=== PATIENT | female | born 1935 | race Caucasian/White ===

== ENCOUNTER 2020-12-22 05:28 | Inpatient (IN) ==
[2020-12-22] MEDS ORDERED: Melatonin 3 MG TABLET PO PRN (10:20)
[2020-12-22] MEDS ORDERED: Ondansetron 4 MG/2 ML VIAL IVP PRN (10:20)
[2020-12-22] MEDS ORDERED: Naloxone 0.4 MG/ML INJ IVP PRN ×2 (10:20→10:48)
[2020-12-22] MEDS ORDERED: Acetaminophen 325 MG TABLET PO PRN (10:48)
[2020-12-22] MEDS ORDERED: *HR* HYDROcodone/Acet 5/325 mg TABLET PO PRN (10:48)
[2020-12-22] MEDS: 0.9 % Sodium Chloride 1,000 ML IVC SCH (11:53)
[2020-12-22 12:26] LABS: Basophils % 0.2 %; Hematocrit 33.1 % (35.3-44.9); Immature Granulocytes % 0.6 % (0-4); Lymphocytes # 0.6 K/mcL (0.6-4.6); Lymphocytes % 7.6 %; Mean Corpuscular HGB Conc 30.2 g/dL (31.6-35.5); Mean Corpuscular Hemoglobin 26.1 pg (28.0-33.3); Mean Corpuscular Volume 86.4 fL (83.0-100.0); Mean Platelet Volume 10.9 fL (9.4-12.4); Monocytes # 0.5 K/mcL (0.0-1.3); Monocytes % 5.4 %; Neutrophils # 7.2 K/mcL (1.6-8.9); Platelet Count 196 K/mcL (140-400); Red Blood Count 3.83 M/mcL (3.82-4.97); Red Cell Distribution Width 14.3 % (11.5-14.5); Segmented Neutrophils % 86.2 %; White Blood Count 8.4 K/mcL (4.3-11.1)
[2020-12-22 12:34] LABS: INR 1.1; Prothrombin Time 12.2 Seconds (9.4-12.1)
[2020-12-22 12:36] LABS: Activated Partial Thrombo Time 26.2 Seconds (26.0-36.0)
[2020-12-22 12:46] LABS: Albumin 3.8 g/dL (3.5-5.7); Albumin/Globulin Ratio 1.6 (1.1-2.2); Bilirubin,Total 0.4 mg/dL (0.3-1.0); Calcium 9.3 mg/dL (8.6-10.3); Globulin 2.4 g/dL (2.4-3.5); Potassium 4.3 mEq/L (3.5-5.1); Total Protein 6.2 g/dL (6.4-8.9)
[2020-12-22] MEDS ORDERED: Dextrose Gel 15 GM/37.5 ML TUBE PO PRN ×2 (15:53)
[2020-12-22] MEDS ORDERED: D5% in Water 1,000 ML IVC PRN (15:53)
[2020-12-22] MEDS ORDERED: *HR* Dextrose 50 % in Water (Vial) 50 ML VIAL IVP PRN (15:53)
[2020-12-22] MEDS: Insulin LISPRO 300 UNITS/3 ML VIAL SUBQ SCH (17:40)
[2020-12-22 17:48] LABS: Estimated Average Glucose 120 mg/dl; Hemoglobin A1C 5.8 %
[2020-12-22] MEDS: *HR* Heparin 5,000 UNIT/ML VIAL SQ SCH (18:40)
[2020-12-22 20:49] LABS: Folate 10.4 ng/mL (3.0-16.0)
[2020-12-22] MEDS ORDERED: Insulin LISPRO 300 UNITS/3 ML VIAL SUBQ SCH (21:00)
[2020-12-23 01:16] LABS: Basophils % 0.4 %; Eosinophils # 0.1 K/mcL (0.0-0.6); Eosinophils % 0.9 %; Hematocrit 30.7 % (35.3-44.9); Hemoglobin 9.2 g/dL (11.5-15.4); Immature Granulocytes % 0.4 % (0-4); Lymphocytes # 0.9 K/mcL (0.6-4.6); Lymphocytes % 12.9 %; Mean Corpuscular Hemoglobin 26.1 pg (28.0-33.3); Mean Corpuscular Volume 87.2 fL (83.0-100.0); Mean Platelet Volume 11.3 fL (9.4-12.4); Monocytes # 0.5 K/mcL (0.0-1.3); Monocytes % 6.9 %; Neutrophils # 5.4 K/mcL (1.6-8.9); Platelet Count 191 K/mcL (140-400); Red Blood Count 3.52 M/mcL (3.82-4.97); Red Cell Distribution Width 14.3 % (11.5-14.5); Segmented Neutrophils % 78.5 %; White Blood Count 6.8 K/mcL (4.3-11.1)
[2020-12-23 01:32] LABS: Calcium 9.1 mg/dL (8.6-10.3); Potassium 4.4 mEq/L (3.5-5.1)
[2020-12-23] MEDS: *HR* Heparin 5,000 UNIT/ML VIAL SQ SCH ×2 (05:42→18:17)
[2020-12-23] MEDS ORDERED: Ringers Solution, Lactated 1,000 ML IVC ONE (07:45)
[2020-12-23 08:24] LABS: Bacteria,Urine Few per hpf (None-Few); Bilirubin,Urine Negative (Negative); Blood,Urine Large (Negative); Clarity,Urine Turbid (Clear); Color,Urine Light-Yellow (Yellow); Glucose,Urine (UA) Normal (Normal); Ketones,Urine Negative (Negative); Leukocyte Esterase,Urine Large (Negative); Mucus,Urine Few per lpf (None-Few); Nitrite,Urine Negative (Negative); PH,Urine 5.5 pH Units (5.0-8.0); Protein,Urine 30 mg/dL (Neg-Trace); RBC,Urine 30-50 per hpf (0-3); Specific Gravity,Urine 1.012 (1.010-1.025); Squamous Epithelial Cell,Urine Few per hpf (None-Few); Urobilinogen,Urine Normal (Normal); WBC,Urine 50-100 per hpf (0-3)
[2020-12-23] MEDS: Insulin LISPRO 300 UNITS/3 ML VIAL SUBQ SCH ×4 (08:49→20:20)
[2020-12-23] MEDS ORDERED: amLODIPine 5 MG TABLET PO SCH (09:00)
[2020-12-23] MEDS ORDERED: *HR* OxyCODONE Immed Rel 5 MG TABLET PO PRN (11:49)
[2020-12-23] MEDS ORDERED: cefTRIAXone 1,000 MG in Water for inj. (sterile) 10 ML IVP SCH (12:00)
[2020-12-23] MEDS: 0.9 % Sodium Chloride 1,000 ML IVC SCH (12:45)
[2020-12-23] MEDS: hydrALAZINE 25 MG TABLET PO SCH ×2 (12:46→18:17)
[2020-12-23] MEDS ORDERED: Vancomycin 1,000 MG VIAL ONE (13:48)
[2020-12-23] MEDS ORDERED: *HR* Vasopressin 20 UNIT/ML VIAL ONE (13:57)
[2020-12-23] MEDS ORDERED: *HR* Phenylephrine 10 MG/ML VIAL ONE (13:58)
[2020-12-23] MEDS ORDERED: TOTAL JOINT MIXTURE (100ML) INTRAART ONE (14:00)
[2020-12-23] MEDS ORDERED: Povidone-Iodine 45 ML, Sodium Chloride IRRigation 1,000 ML IR ONE ×2 (14:00→18:29)
[2020-12-23 14:19] LABS: Calcium 9.4 mg/dL (8.6-10.3); Potassium 4.7 mEq/L (3.5-5.1)
[2020-12-23] MEDS ORDERED: Ondansetron 4 MG/2 ML VIAL IVP PRN ×2 (14:31→18:29)
[2020-12-23] MEDS ORDERED: *HR* FentaNYL (PF) 100 MCG/2 ML VIAL ONE (14:50)
[2020-12-23] MEDS ORDERED: *HR* Midazolam HCl 2 MG/2 ML VIAL ONE (14:50)
[2020-12-23] MEDS ORDERED: Clindamycin 900 MG/50 ML 900 MG/50 ML IV.SOLN IVPB SCH (15:00)
[2020-12-23] MEDS ORDERED: ROPIVACAINE/PF/NS 0.25% 1 EACH SYRINGE INTRAART ONE (15:09)
[2020-12-23] MEDS ORDERED: Tranexamic Acid 1,000 MG/10 ML VIAL ONE (15:33)
[2020-12-23] MEDS ORDERED: *HR* PHENYLEPHRINE 1,000 MCG/10 ML SYRINGE IVP ONE (15:33)
[2020-12-23] MEDS ORDERED: Sennosides 8.6 MG TABLET PO PRN (18:29)
[2020-12-23] MEDS ORDERED: *HR* Dextrose 50 % in Water (Vial) 50 ML VIAL IVP PRN (18:29)
[2020-12-23] MEDS ORDERED: MOM Conc 10 ML UD.LIQ PO PRN (18:29)
[2020-12-23] MEDS ORDERED: D5% in Water 1,000 ML IVC PRN (18:29)
[2020-12-23] MEDS ORDERED: Dextrose Gel 15 GM/37.5 ML TUBE PO PRN ×2 (18:29)
[2020-12-23] MEDS ORDERED: Naloxone 0.4 MG/ML INJ IVP PRN (18:29)
[2020-12-23] MEDS ORDERED: *HR* Promethazine 25 MG/ML VIAL IM PRN (18:29)
[2020-12-23] MEDS ORDERED: Ropivacaine/PF 0.5% 49.24 ML, EPINEPHrine 0.5 MG, cloNIDine 0.08 MG, Ketorolac 30 MG, 0... INTRAART ONE (18:29)
[2020-12-24] LABS: Sodium, Urine 43.5 mEq/L
[2020-12-24] MEDS ORDERED: hydrALAZINE 25 MG TABLET PO SCH
[2020-12-24] MEDS: Clindamycin 900 MG/50 ML 900 MG/50 ML IV.SOLN IVPB SCH ×2 (01:53→10:12)
[2020-12-24 02:15] LABS: Hematocrit 28.1 % (35.3-44.9); Hemoglobin 8.5 g/dL (11.5-15.4); Mean Corpuscular HGB Conc 30.2 g/dL (31.6-35.5); Mean Corpuscular Hemoglobin 26.3 pg (28.0-33.3); Mean Platelet Volume 11.2 fL (9.4-12.4); Platelet Count 175 K/mcL (140-400); Red Blood Count 3.23 M/mcL (3.82-4.97); Red Cell Distribution Width 14.5 % (11.5-14.5); White Blood Count 7.9 K/mcL (4.3-11.1)
[2020-12-24 02:30] LABS: Calcium 8.7 mg/dL (8.6-10.3); Potassium 5.1 mEq/L (3.5-5.1)
[2020-12-24] MEDS: *HR* OxyCODONE Immed Rel 5 MG TABLET PO PRN ×2 (03:34→08:23)
[2020-12-24] MEDS: *HR* Heparin 5,000 UNIT/ML VIAL SQ SCH ×2 (05:44→16:54)
[2020-12-24] MEDS ORDERED: Ringers Solution, Lactated 1,000 ML IVC ONE (07:31)
[2020-12-24] MEDS: Ascorbic Acid 500 MG TABLET PO SCH ×2 (08:16→16:48)
[2020-12-24] MEDS: Multivit/Ca/Min/Fe/FA 1 TAB TABLET PO SCH (08:16)
[2020-12-24] MEDS: amLODIPine 5 MG TABLET PO SCH (08:16)
[2020-12-24] MEDS: cefTRIAXone 1,000 MG in Water for inj. (sterile) 10 ML IVP SCH (08:17)
[2020-12-24] MEDS ORDERED: amLODIPine 5 MG TABLET PO SCH (09:00)
[2020-12-24] MEDS: Insulin LISPRO 300 UNITS/3 ML VIAL SUBQ SCH ×4 (09:43→20:14)
[2020-12-24] MEDS: Sodium Bicarbonate 75 MEQ in 0.45 % Sodium Chloride 1,000 ML IVC SCH (11:53)
[2020-12-25] MEDS: Sodium Bicarbonate 75 MEQ in 0.45 % Sodium Chloride 1,000 ML IVC SCH ×2 (00:41→12:43)
[2020-12-25] MEDS: *HR* Heparin 5,000 UNIT/ML VIAL SQ SCH ×2 (05:50→16:45)
[2020-12-25] MEDS: Insulin LISPRO 300 UNITS/3 ML VIAL SUBQ SCH ×4 (08:24→22:25)
[2020-12-25] MEDS: amLODIPine 5 MG TABLET PO SCH (08:27)
[2020-12-25] MEDS: Multivit/Ca/Min/Fe/FA 1 TAB TABLET PO SCH (08:27)
[2020-12-25] MEDS: cefTRIAXone 1,000 MG in Water for inj. (sterile) 10 ML IVP SCH (08:27)
[2020-12-25] MEDS: Ascorbic Acid 500 MG TABLET PO SCH ×2 (08:27→16:45)
[2020-12-25 08:35] LABS: Hematocrit 26.4 % (35.3-44.9); Mean Corpuscular HGB Conc 30.3 g/dL (31.6-35.5); Mean Corpuscular Hemoglobin 25.6 pg (28.0-33.3); Mean Corpuscular Volume 84.6 fL (83.0-100.0); Mean Platelet Volume 11.1 fL (9.4-12.4); Platelet Count 183 K/mcL (140-400); Red Blood Count 3.12 M/mcL (3.82-4.97); Red Cell Distribution Width 14.8 % (11.5-14.5); White Blood Count 9.5 K/mcL (4.3-11.1)
[2020-12-25 11:01] LABS: Calcium 9.1 mg/dL (8.6-10.3); Potassium 3.6 mEq/L (3.5-5.1)
[2020-12-25] MEDS: *HR* OxyCODONE Immed Rel 5 MG TABLET PO PRN (16:46)
[2020-12-26 02:07] LABS: Calcium 8.8 mg/dL (8.6-10.3); Potassium 3.5 mEq/L (3.5-5.1)
[2020-12-26] MEDS: *HR* OxyCODONE Immed Rel 5 MG TABLET PO PRN ×2 (06:21→10:22)
[2020-12-26] MEDS: *HR* Heparin 5,000 UNIT/ML VIAL SQ SCH ×2 (06:21→17:13)
[2020-12-26] MEDS: Insulin LISPRO 300 UNITS/3 ML VIAL SUBQ SCH ×4 (08:45→20:27)
[2020-12-26] MEDS: Aspirin Enteric Coated 81 MG Tablet PO SCH (09:24)
[2020-12-26] MEDS: amLODIPine 5 MG TABLET PO SCH (09:24)
[2020-12-26] MEDS: Ascorbic Acid 500 MG TABLET PO SCH ×2 (09:24→17:12)
[2020-12-26] MEDS: Multivit/Ca/Min/Fe/FA 1 TAB TABLET PO SCH (09:24)
[2020-12-26] MEDS: cefTRIAXone 1,000 MG in Water for inj. (sterile) 10 ML IVP SCH (10:23)
[2020-12-26] MEDS ORDERED: 0.9 % Sodium Chloride 1,000 ML IVC SCH (11:45)
[2020-12-27 03:10] LABS: Hematocrit 20.9 % (35.3-44.9); Hemoglobin 6.4 g/dL (11.5-15.4); Mean Corpuscular HGB Conc 30.6 g/dL (31.6-35.5); Mean Corpuscular Hemoglobin 26.2 pg (28.0-33.3); Mean Corpuscular Volume 85.7 fL (83.0-100.0); Mean Platelet Volume 11.9 fL (9.4-12.4); Platelet Count 186 K/mcL (140-400); Red Blood Count 2.44 M/mcL (3.82-4.97); White Blood Count 6.8 K/mcL (4.3-11.1)
[2020-12-27 03:25] LABS: Calcium 8.5 mg/dL (8.6-10.3); Potassium 3.6 mEq/L (3.5-5.1)
[2020-12-27] MEDS: *HR* Heparin 5,000 UNIT/ML VIAL SQ SCH ×2 (06:00→17:49)
[2020-12-27] MEDS: Insulin LISPRO 300 UNITS/3 ML VIAL SUBQ SCH ×4 (08:57→20:43)
[2020-12-27] MEDS: Ascorbic Acid 500 MG TABLET PO SCH ×2 (08:58→17:49)
[2020-12-27] MEDS: Multivit/Ca/Min/Fe/FA 1 TAB TABLET PO SCH (08:59)
[2020-12-27] MEDS: amLODIPine 5 MG TABLET PO SCH (08:59)
[2020-12-27] MEDS: Aspirin Enteric Coated 81 MG Tablet PO SCH (08:59)
[2020-12-27] MEDS ORDERED: 0.9 % Sodium Chloride 250 ML ONE (11:35)
[2020-12-27] MEDS: cefTRIAXone 1,000 MG in Water for inj. (sterile) 10 ML IVP SCH (12:15)
[2020-12-27] MEDS: *HR* OxyCODONE Immed Rel 5 MG TABLET PO PRN (14:24)
[2020-12-27 16:11] LABS: Hematocrit 28.2 % (35.3-44.9)
[2020-12-27 16:18] LABS: Hemoglobin 8.7 g/dL (11.5-15.4)
[2020-12-28] MEDS: *HR* OxyCODONE Immed Rel 5 MG TABLET PO PRN ×2 (01:15→19:17)
[2020-12-28 02:55] LABS: Hematocrit 24.6 % (35.3-44.9); Hemoglobin 7.8 g/dL (11.5-15.4); Mean Corpuscular HGB Conc 31.7 g/dL (31.6-35.5); Mean Corpuscular Hemoglobin 27.1 pg (28.0-33.3); Mean Corpuscular Volume 85.4 fL (83.0-100.0); Platelet Count 196 K/mcL (140-400); Red Blood Count 2.88 M/mcL (3.82-4.97); Red Cell Distribution Width 14.8 % (11.5-14.5)
[2020-12-28 03:12] LABS: Calcium 8.9 mg/dL (8.6-10.3); Potassium 3.7 mEq/L (3.5-5.1)
[2020-12-28 03:34] LABS: Folate 10.3 ng/mL (3.0-16.0)
[2020-12-28] MEDS: *HR* Heparin 5,000 UNIT/ML VIAL SQ SCH ×2 (06:31→17:25)
[2020-12-28] MEDS: Ascorbic Acid 500 MG TABLET PO SCH ×2 (09:15→17:25)
[2020-12-28] MEDS: cefTRIAXone 1,000 MG in Water for inj. (sterile) 10 ML IVP SCH (09:15)
[2020-12-28] MEDS: Multivit/Ca/Min/Fe/FA 1 TAB TABLET PO SCH (09:15)
[2020-12-28] MEDS: amLODIPine 5 MG TABLET PO SCH (09:15)
[2020-12-28] MEDS: Cyanocobalamin (B-12) 1,000 MCG/ML VIAL SQ SCH (09:15)
[2020-12-28] MEDS: Aspirin Enteric Coated 81 MG Tablet PO SCH (09:15)
[2020-12-28] MEDS: Insulin LISPRO 300 UNITS/3 ML VIAL SUBQ SCH ×4 (09:17→20:30)
[2020-12-28 12:37] LABS: Hematocrit 29.4 % (35.3-44.9); Hemoglobin 9.2 g/dL (11.5-15.4)
[2020-12-28] MEDS: Melatonin 3 MG TABLET PO PRN (21:04)
[2020-12-29 00:35] LABS: Basophils % 0.4 %; Eosinophils # 0.1 K/mcL (0.0-0.6); Eosinophils % 1.9 %; Hematocrit 27.7 % (35.3-44.9); Hemoglobin 8.5 g/dL (11.5-15.4); Immature Granulocytes % 1.2 % (0-4); Lymphocytes # 1.5 K/mcL (0.6-4.6); Mean Corpuscular HGB Conc 30.7 g/dL (31.6-35.5); Mean Corpuscular Hemoglobin 26.9 pg (28.0-33.3); Mean Corpuscular Volume 87.7 fL (83.0-100.0); Mean Platelet Volume 10.8 fL (9.4-12.4); Monocytes # 0.9 K/mcL (0.0-1.3); Monocytes % 13.2 %; Neutrophils # 4.3 K/mcL (1.6-8.9); Platelet Count 240 K/mcL (140-400); Red Blood Count 3.16 M/mcL (3.82-4.97); Red Cell Distribution Width 14.7 % (11.5-14.5); Segmented Neutrophils % 62.3 %; White Blood Count 6.9 K/mcL (4.3-11.1)
[2020-12-29 00:50] LABS: Potassium 4.2 mEq/L (3.5-5.1)
[2020-12-29] MEDS ORDERED: *HR* HYDROcodone/Acet 5/325 mg TABLET PO PRN (02:50)
[2020-12-29] MEDS ORDERED: Morphine Sulfate 2 MG/ML SYRINGE IVP ONE (02:52)
[2020-12-29 04:58] LABS: Bilirubin,Urine Negative (Negative); Blood,Urine Negative (Negative); Clarity,Urine Clear (Clear); Color,Urine Colorless (Yellow); Glucose,Urine (UA) Normal (Normal); Ketones,Urine Negative (Negative); Leukocyte Esterase,Urine Negative (Negative); Nitrite,Urine Negative (Negative); Protein,Urine Negative (Neg-Trace); Specific Gravity,Urine 1.006 (1.010-1.025); Urobilinogen,Urine Normal (Normal)
[2020-12-29] MEDS: *HR* Heparin 5,000 UNIT/ML VIAL SQ SCH ×2 (06:14→17:33)
[2020-12-29] MEDS: Cyanocobalamin (B-12) 1,000 MCG/ML VIAL SQ SCH (08:47)
[2020-12-29] MEDS: cefTRIAXone 1,000 MG in Water for inj. (sterile) 10 ML IVP SCH (08:47)
[2020-12-29] MEDS: Insulin LISPRO 300 UNITS/3 ML VIAL SUBQ SCH ×4 (08:48→21:30)
[2020-12-29] MEDS: amLODIPine 5 MG TABLET PO SCH ×2 (08:48→15:24)
[2020-12-29] MEDS: Ascorbic Acid 500 MG TABLET PO SCH ×2 (08:48→15:24)
[2020-12-29] MEDS: Aspirin Enteric Coated 81 MG Tablet PO SCH (08:48)
[2020-12-29] MEDS: Multivit/Ca/Min/Fe/FA 1 TAB TABLET PO SCH (08:48)
[2020-12-29] MEDS: Melatonin 3 MG TABLET PO PRN (21:04)
[2020-12-30] MEDS: *HR* OxyCODONE Immed Rel 5 MG TABLET PO PRN (01:54)
[2020-12-30 04:38] LABS: Hematocrit 30.7 % (35.3-44.9); Hemoglobin 9.3 g/dL (11.5-15.4); Mean Corpuscular HGB Conc 30.3 g/dL (31.6-35.5); Mean Corpuscular Hemoglobin 26.6 pg (28.0-33.3); Platelet Count 272 K/mcL (140-400); Red Blood Count 3.49 M/mcL (3.82-4.97); White Blood Count 6.7 K/mcL (4.3-11.1)
[2020-12-30 04:54] LABS: Potassium 4.4 mEq/L (3.5-5.1)
[2020-12-30] MEDS: *HR* Heparin 5,000 UNIT/ML VIAL SQ SCH ×2 (05:52→16:28)
[2020-12-30] MEDS: Insulin LISPRO 300 UNITS/3 ML VIAL SUBQ SCH ×4 (07:37→19:55)
[2020-12-30] MEDS: Cyanocobalamin (B-12) 1,000 MCG/ML VIAL SQ SCH (07:42)
[2020-12-30] MEDS: Multivit/Ca/Min/Fe/FA 1 TAB TABLET PO SCH (07:43)
[2020-12-30] MEDS: Aspirin Enteric Coated 81 MG Tablet PO SCH (07:43)
[2020-12-30] MEDS: amLODIPine 5 MG TABLET PO SCH (07:43)
[2020-12-30] MEDS: Ascorbic Acid 500 MG TABLET PO SCH ×2 (07:44→16:28)
[2020-12-30] MEDS: cefTRIAXone 1,000 MG in Water for inj. (sterile) 10 ML IVP SCH (07:44)
[2020-12-30] MEDS: 0.9 % Sodium Chloride 1,000 ML IVC SCH ×2 (11:26→19:54)
[2020-12-30] MEDS: Melatonin 3 MG TABLET PO PRN (23:48)
[2020-12-31] MEDS: *HR* Heparin 5,000 UNIT/ML VIAL SQ SCH ×2 (06:18→18:14)
[2020-12-31] MEDS: Aspirin Enteric Coated 81 MG Tablet PO SCH (08:21)
[2020-12-31] MEDS: amLODIPine 5 MG TABLET PO SCH (08:21)
[2020-12-31] MEDS: Multivit/Ca/Min/Fe/FA 1 TAB TABLET PO SCH (08:21)
[2020-12-31] MEDS: Ascorbic Acid 500 MG TABLET PO SCH ×2 (08:21→18:14)
[2020-12-31] MEDS: Cyanocobalamin (B-12) 1,000 MCG/ML VIAL SQ SCH (08:23)
[2020-12-31] MEDS: Insulin LISPRO 300 UNITS/3 ML VIAL SUBQ SCH ×4 (08:26→21:13)
[2020-12-31 21:15] LABS: Lambda Qnt Free Light Chains 39.95 mg/L (5.71-26.30)
[2021-01-01] MEDS: *HR* Heparin 5,000 UNIT/ML VIAL SQ SCH ×2 (06:15→17:17)
[2021-01-01] MEDS: Aspirin Enteric Coated 81 MG Tablet PO SCH (07:53)
[2021-01-01] MEDS: Ascorbic Acid 500 MG TABLET PO SCH ×2 (07:54→17:17)
[2021-01-01] MEDS: Multivit/Ca/Min/Fe/FA 1 TAB TABLET PO SCH (07:54)
[2021-01-01] MEDS: amLODIPine 5 MG TABLET PO SCH (07:56)
[2021-01-01] MEDS: Insulin LISPRO 300 UNITS/3 ML VIAL SUBQ SCH ×4 (07:59→20:23)
[2021-01-01 10:56] LABS: Kappa Qnt Free Light Chains 43.91 mg/L (3.30-19.40)
[2021-01-01] MEDS: Melatonin 3 MG TABLET PO PRN (22:26)
[2021-01-02 00:57] LABS: Alpha 2 Globulin (PEP) 0.78 g/dL (0.48-1.05); Beta Globulin (PEP) 0.62 g/dL (0.48-1.10)
[2021-01-02] MEDS: *HR* Heparin 5,000 UNIT/ML VIAL SQ SCH (06:24)
[2021-01-02] MEDS: Insulin LISPRO 300 UNITS/3 ML VIAL SUBQ SCH (10:08)
[2021-01-02 10:14] VITALS: BP 156/76
[2021-01-02] MEDS: amLODIPine 5 MG TABLET PO SCH (10:22)
[2021-01-02] MEDS: Ascorbic Acid 500 MG TABLET PO SCH (10:24)
[2021-01-02] MEDS: Multivit/Ca/Min/Fe/FA 1 TAB TABLET PO SCH (10:24)
[2021-01-02] MEDS: Aspirin Enteric Coated 81 MG Tablet PO SCH (10:24)
[2021-01-02 10:49] LABS: IFE Reflexed NOT DONE
[2021-01-02 15:59] LABS: Adenovirus Not Detected (Not Detect); Bordetella Pertussis Not Detected (Not Detect); Chlamydophila pneumoniae Not Detected (Not Detect); Coronavirus 229E Not Detected (Not Detect); Coronavirus HKU1 Not Detected (Not Detect); Coronavirus NL63 Not Detected (Not Detect); Coronavirus OC43 Not Detected (Not Detect); Human Metapneumovirus Not Detected (Not Detect); Human Rhinovirus/Enterovirus Not Detected (Not Detect); Influenza A Subtype 2009 H1 Not Detected (Not Detect); Influenza B Not Detected (Not Detect); Mycoplasma pneumoniae Not Detected (Not Detect); Parainfluenza Virus 1 Not Detected (Not Detect); Parainfluenza Virus 2 Not Detected (Not Detect); Parainfluenza Virus 3 Not Detected (Not Detect); Parainfluenza Virus 4 Not Detected (Not Detect); Respiratory Syncytial Virus Not Detected (Not Detect); SARS-CoV-2 Not Detected (Not Detect)
== END 2021-01-02 17:00 | DRG 521 ==
LOC: 3NENU → SUATTDRO 10:01
PROVIDERS: ADMIT Internal Medicine; ATTEND Student in an Organized Health Care Education/Training Program